=== PATIENT | female | born 1980 | race Two or more races ===

== ENCOUNTER 2024-03-29 00:23 | Emergency (ER) | payer OTHER ==
[~2024-03-29] VITALS: Ht 165.1 cm; Wt 65.0 kg
[2024-03-29 00:40] VITALS: TEMP 98
[2024-03-29 01:00] VITALS: BP 128/84; PULSE 90; RESP 16; O2SAT 99
[2024-03-29] MEDS: OxyCODONE HCL 5 MG IR TABLET PO ONE (01:13)
[2024-03-29] MEDS ORDERED: OXYC5 PO (01:59)
[2024-03-29] MEDS ORDERED: IBUP-1492 PO (01:59)
== END 2024-03-29 02:10 | disposition home or self-care (01) ==
LOC: EMS 00:23
DX: M48.02 Spinal stenosis, cervical region (principal)
CPT/HCPCS: 99283